=== PATIENT | female | born 1965 | race Caucasian/White ===

== ENCOUNTER 2019-12-30 17:41 | Outpatient (REF) | payer OTHER, SELFPAY | END 2019-12-30 17:42 | disposition home or self-care (01) | LOC: HO.LNP 17:41 | PROVIDERS: Visit Provider Nurse Practitioner Family | DX: Z20.828 Contact with and (suspected) exposure to other viral communicable diseases (principal) | CPT/HCPCS: U0003 ==

== ENCOUNTER 2020-10-03 15:32 | Outpatient (REF) | payer OTHER, SELFPAY | END 2020-10-03 15:33 | disposition home or self-care (01) | LOC: HO.LNP 15:32 | PROVIDERS: Visit Provider Physician Assistant | DX: Z20.822 Contact with and (suspected) exposure to COVID-19 (principal); R52 Pain, unspecified | CPT/HCPCS: U0003; U0005 ==

== ENCOUNTER 2021-02-20 11:02 | Outpatient (REF) | payer OTHER, SELFPAY ==
[2021-02-20 11:32] LABS: Binax Internal Control QC Valid; Binax Now Covid-19 Ag Negative (Negative)
== END 2021-02-20 11:03 | disposition home or self-care (01) ==
LOC: HO.HMGCLDS 11:02
PROVIDERS: PCP Internal Medicine; Visit Provider Internal Medicine
DX: J06.9 Acute upper respiratory infection, unspecified (principal)
CPT/HCPCS: 36415

== ENCOUNTER 2021-06-07 13:58 | Outpatient (REF) | payer OTHER, SELFPAY ==
[2021-06-07 14:43] LABS: Influenza A PCR NEGATIVE (Negative); Influenza B PCR NEGATIVE (Negative); Resp Syncy Virus RNA Qual PCR NEGATIVE (Negative); SARS COV2 PCR INHOUSE POSITIVE (Negative)
== END 2021-06-07 13:59 | disposition home or self-care (01) ==
LOC: HO.LNP 13:58
PROVIDERS: Visit Provider Physician Assistant
DX: B34.9 Viral infection, unspecified (principal); Z20.822 Contact with and (suspected) exposure to COVID-19
CPT/HCPCS: 0241U

== ENCOUNTER 2022-10-03 17:09 | Outpatient (AMB) | payer OTHER, SELFPAY ==
[2022-10-03 17:25] VITALS: BP 106/80; PULSE 71; O2SAT 98; BMI 29.4
--- NOTE | 2022-10-03 17:25 | A.OFFPC_ITS ---
Vital Signs 10/03/22 17:25 Height 5 ft 6 in Weight 182 lb 6 oz BMI 29.4 BP 106/80 Blood Pressure Location Lt brachial Position Sitting Pulse 71 Pulse Source Pulse Oximeter Pulse Oximetry (%) 98 Oxygen Delivery Method Room Air Intake Visit Reasons: Annual PE Auto Dismantler Required: No Accompanied by: Self / Same As Patient Allergies ibuprofen Adverse Reaction (Unknown, Verified 10/03/22 17:59) stomach upset Medication List - Last Reconciled 10/03/22 by Chandan Arzola MD diclofenac sodium 1% 2 grams topical QID [id number]-vaegg-calcium carb-K1 400 mcg-500 mg calcium-20 mcg (Women's 50 Plus Multivitamin) tabs PO Tobacco use date assessed: 10/03/22 Dental Screening Dental Screen Date: 10/03/22 Did you have a dental visit in the last 12 months?: No Did you have a dental problem in the last 6 months where you did not have access to dental care?: No Was dental information given to patient?: No HPI Annual PE HPI Details Patient comes in today for her annual physical examination - has not been seen in our practice in a few years due to insurance issues States that she has been having problems with her ears lately Relates that her left ear felt blocked up for a day or so and her symptoms eventually cleared up on their own States that she woke up yesterday with her right ear now feeling blocked up and it remains unchanged until today Has not had any recent cough/cold symptoms but states that 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 at work all the time She denies any fever or sore throat Denies any headaches or dizziness Denies any chest pains, no SOB No nausea/vomiting, no abdominal pain No change in bowel habits noted Denies any acute urinary symptoms Adds that she has been experiencing recurrent left ankle pain for months now Denies any history of injury or trauma to her ankle Went to the walk-in clinic in [place] earlier this year for the same problem but was advised that the clinic in [place] did not have an x-ray machine on site and x-rays could not be done at the time She has not seen OB-Aligning Inspector and had pap smear and rn integrated exam done in years; also has not had mammogram done since 2014 and has never had a screening colonoscopy done in the past [facility] Medical History (Updated 10/03/22 @ 19:35 by Chandan Arzola MD) Hyperlipidemia Osteoarthritis of right knee Overweight (BMI 25.0-29.9) Pure hypercholesterolemia Surgical History No pertinent past surgical history Family History Father Skin cancer CVD (cardiovascular disease) Myocardial infarction Mother Skin cancer Afib Son Autism Social History Housing: House Patient Tobacco Use Status: Former Tobacco user e-Cigarette/Vaping Use: Never Used service: No Current occupational status: employed Cognitive needs: No Hearing needs: No Vision needs: No Questionnaire PHQ-9 Over the last 2 weeks, how often have you been bothered by any of the following problems? 1. Little interest or pleasure in doing things: not at all 2. Feeling down, depressed, or hopeless: not at all 3. Trouble falling or staying asleep, or sleeping too much: not at all 4. Feeling tired or having little energy: not at all 5. Poor appetite or overeating: not at all 6. Feeling bad about yourself - or that you are a failure or have let yourself or your family down: not at all 7. Trouble concentrating on things, such as reading the newspaper or watching television: not at all 8. Moving or speaking so slowly that other people could have noticed. Or the opposite - being so fidgety or restless that you have been moving around a lot more than usual: not at all 9. Thoughts that you would be better off or of hurting yourself in some way: not at all Total score: 0 Depression Screening Interpretation: Negative [id number] - PHQ-9 Billing: Yes Source: Developed by Drs. Minh Valles, Latanya Leon, Remi Carbajal and colleagues, with an educational alison from [employer]. Thrive Questionnaire Date Thrive assessed: 10/03/22 I am a: Patient What is your living situation today?: I have a steady place to live Within the past 12 months, did the food you bought not last and you didn't have the money to get more?: Never true Within the past 12 months, did you worry whether your food would run out before you got money to buy more?: Never true Do you have trouble paying for medicines?: No Do you have trouble getting transportation to medical appointments?: No Do you have trouble paying your heating and electricity bill?: No Do you have trouble taking care of your child, family member or friend?: No Do you have trouble with day-to-day activities such as bathing, preparing meals, shopping, managing finances, etc.?: No Are you currently unemployed and looking for a job?: No Are you interested in more education?: No Please select the resources that you would like help with: None Currently or been in a relationship where the following occur: no concerns re ported AUDIT C Alcohol Use Questionnaire (AUDIT-C) 1. How often do you have a drink containing alcohol?: Never Total Score: 0 Score Reviewed/Action Taken: Yes EVELYN-7 AMB Questionnaire EVELYN-7 Date EVELYN - 7 assessed: 10/03/22 Feeling nervous, anxious, or on edge: 0 = Not at all Not being able to stop or control worryin = Not at all Worrying too much about different things: 0 = Not at all Trouble relaxin = Not at all Being so restless that it is hard to sit still: 0 = Not at all Becoming easily annoyed or irritable: 0 = Not at all Feeling afraid as if something awful might happen: 0 = Not at all Total EVELYN-7 score (0-4 normal; 5-9 mild; 10-14 moderate; 15-21 severe): 0 Source: Developed by Drs. Minh Valles, Latanya Leon, Remi Carbajal and colleagues, with an educational alison from [employer]. Review of Systems Const Denies chills, Denies fatigue, Denies fever(s), Denies headache(s) and Denies malaise Eyes Denies blurry vision, Denies change in vision, Denies irritation and Denies itchy eyes ENT Details: ears feel clogged/blocked up off and on - see HPI Denies dysphagia, Denies dizziness, Denies otalgia, Denies headache(s), Denies nasal congestion, Denies neck pain, Denies odynophagia, Denies sinus pain and Denies sore throat Card Denies chest pain, Denies rapid heart rate, Denies irregular heart rhythm, Denies palpitations and Denies dyspnea Resp Denies chest congestion, Denies cough, Denies dyspnea and Denies wheezing GI Denies abdominal pain, Denies bloating, Denies constipation, Denies dysphagia, Denies heartburn, Denies diarrhea, Denies nausea, Denies odynophagia and Denies vomiting Denies hematuria, Denies urinary frequency, Denies dysuria, Denies urinary incontinence and Denies urinary urgency Musc Denies back pain, Reports arthralgias (left ankle - see HPI), Denies joint swelling, Denies muscle weakness and Denies neck pain Skin/Breast Denies breast pain, Denies breast mass, Denies change in pigmentation, Denies lesions, Denies rash and Denies unusual bruising Neuro Denies dizziness, Denies headache(s) and Denies paresthesias Psych Denies anxiety and Denies depression Endo Denies fatigue and Denies palpitations Loi/Lymph Denies easy bruising Aller/Immun Denies itchy eyes and Denies wheezing Physical exam (Primary Care) Vital Signs: Last Vital Signs Pulse 71 10/03/22 17:25 BP 106/80 10/03/22 17:25 Pulse Ox 98 10/03/22 17:25 Oxygen Delivery Method Room Air 10/03/22 17:25 BMI result Body Mass Index 29.4 Tobacco/Smoking Status: Tobacco use Status Tobacco use date assessed 10/03/22 10/03/22 17:36 Patient Tobacco Use Status Former Tobacco user 10/03/22 17:36 e-Cigarette/Vaping Use Never Used 10/03/22 17:36 PHQ-9: PHQ-9 Score PHQ-9: Total score 0 10/03/22 18:02 Depression Screening Interpretation: Negative Thrive Assessment: Date of Thrive Assessment Date Thrive assessed 10/03/22 10/03/22 17:36 Currently or been in a relationship where the following occur: no concerns reported Const General: no acute distress, alert and awake Orientation/consciousness: patient oriented x3 HENMT Head: Yes normocephalic and Yes atraumatic Ears: external ears normal, Abnormal EAC present cerumen impaction bilateral (slightly worse in the right ear) and unable to visualize TM bilaterally (due to excessive amount of cerumen in the ear canals) General nose exam: No nasal discharge present Face and sinus: Yes normal facial exam and Yes sinuses nontender Teeth and gingiva: dentition normal Throat: Yes posterior oropharynx normal and Yes tonsils normal (no TP congestion) Eyes Eyelids: Yes eyelids normal Conjunctivae: conjunctivae normal Pupils: Equal, round and reactive pupils present EOM: EOMs intact bilaterally Neck Neck: Yes no lymphadenopathy and Yes supple Thyroid: Thyroid normal Resp Auscultation: clear to auscultation bilaterally, no rales and no wheezes Cardio Rate: regular rate Rhythm: regular rhythm Heart sounds: no murmurs GI Palpation (GI): Soft to palpation, nontender and No hepatosplenomegaly present Auscultation: normal bowel sounds General: Yes no CVA tenderness Back/Spine/Pelvis Back: no CVA tenderness Thoracic/Lumbar Spine: thoracic and lumbar spine normal to inspection Skin Lesions: no lesions Rashes: no rashes Neuro General: patient oriented x3, moves all extremities, no focal motor deficits and CN's II-XI intact bilaterally Cranial nerves: Yes Equal, round and reactive pupils present Cognition (Neuro): normal cognition Gait exam (Neuro): Normal gait present Extrem General: Yes no clubbing, cyanosis or edema Left lower extremity: ankle Details: tenderness; no swelling Assessment and Plan Assessment & Plan (1) Annual physical exam: Code(s): Z00.00 - Encounter for general adult medical examination without abnormal findings Plan: Check labs (2) Pure hypercholesterolemia: Code(s): E78.00 - Pure hypercholesterolemia, unspecified Plan: Reinforced low cholesterol diet Will recheck her fasting lipids BERTRAND for follow up (3) Impacted cerumen of both ears: Code(s): H61.23 - Impacted cerumen, bilateral Plan: Patient is instructed to start using Debrox ear drops into both ears as instructed for 5 to 7 days Instructed also on self irrigation of her ears while in the shower daily Will need to undergo ear irrigation in the office OR refer to ENT for further evaluation and management if unsuccessful at attempts with conservative treatment/management (4) Left ankle pain: Code(s): M25.572 - Pain in left ankle and joints of left foot Qualifiers: Chronicity: chronic Qualified Code(s): M25.572 - Pain in left ankle and joints of left foot; G89.29 - Other chronic pain Plan: Unknown etiology Will send her for x-rays of the left ankle BERTRAND for further evaluation (5) Overweight (BMI 25.0-29.9): Code(s): E66.3 - Overweight Plan: Reinforced diet/exercise as tolerated/lose weight (6) Breast cancer screening by mammogram: Code(s): Z12.31 - Encounter for screening mammogram for malignant neoplasm of breast Plan: Will send for annual screening mammogram - has not had one done since 2014 (7) Cervical cancer screening: Code(s): Z12.4 - Encounter for screening for malignant neoplasm of cervix Plan: Will refer her to OB-Aligning Inspector for annual pap smear and rn integrated exam (8) Colon cancer screening: Code(s): Z12.11 - Encounter for screening for malignant neoplasm of colon Plan: Patient declined offer to refer her to screening colonoscopy at this time but agrees to doing Cologuard testing States that she has no increased family of personal risks for colon cancer Plan To return in 1 year for her next annual physical examination Orders: Orders XR ankle LT min 3V Today M25.572 - Pain in left ankle and joints of left foot Comprehensive [place]bee. Panel Fast Today E78.00 - Pure hypercholesterolemia, unspecified, Z00.00 - Encounter for general adult medical examination without abnormal findings Lipid Panel Today E78.00 - Pure hypercholesterolemia, unspecified, Z00.00 - Encounter for general adult medical examination without abnormal findings TSH reflex Free T4 Today E78.00 - Pure hypercholesterolemia, unspecified, Z00.00 - Encounter for general adult medical examination without abnormal findings Vitamin D 25-OH Total Today E55.9 - Vitamin D deficiency, unspecified, Z00.00 - Encounter for general adult medical examination without abnormal findings Complete Blood Count Auto Diff Today Z00.00 - Encounter for general adult medical examination without abnormal findings UA CC w/rflx Micro + Cult Today R30.0 - Dysuria, Z00.00 - Encounter for general adult medical examination without abnormal findings MM tomosynthesis screening BI Today Z12.31 - Encounter for screening mammogram for malignant neoplasm of breast Referrals FRAME SAMPLE AND PATTERN SUPERVISOR Referral Z12.4 - Encounter for screening for malignant neoplasm of cervix Cologuard Test Z12.11 - Encounter for screening for malignant neoplasm of colon Medications: New Debrox 6.5% (carbamide peroxide) 10 drps otic (ears) DAILY 7 days 15 mL 0RF NS Review Patient declined Colonoscopy: 10/03/22 (but agrees to Cologuard testing) Coding Level of Care Code Est Pt Prev Care 40-64y(75538) Diagnoses Annual physical exam Z00.00 Pure hypercholesterolemia E78.00 Impacted cerumen of both ears H61.23 Left ankle pain M25.572; G89.29 Chronicity: chronic Overweight (BMI 25.0-29.9) E66.3 Breast cancer screening by mammogram Z12.31 Cervical cancer screening Z12.4 Colon cancer screening Z12.11
== END 2022-10-03 18:24 | disposition home or self-care (01) ==
PROVIDERS: Visit Provider Internal Medicine
DX: Z00.00 Encounter for general adult medical examination without abnormal findings (principal); E78.00 Pure hypercholesterolemia, unspecified; H61.23 Impacted cerumen, bilateral; M25.572 Pain in left ankle and joints of left foot; G89.29 Other chronic pain; E66.3 Overweight; Z12.31 Encounter for screening mammogram for malignant neoplasm of breast; Z12.4 Encounter for screening for malignant neoplasm of cervix; Z12.11 Encounter for screening for malignant neoplasm of colon
CPT/HCPCS: 99396

== ENCOUNTER 2022-10-04 08:19 | Outpatient (REF) | payer OTHER, SELFPAY ==
--- NOTE | ~2022-10-04 | XR_ITS ---
EXAMINATION: XR ANKLE, LEFT CLINICAL INFORMATION: Pain COMPARISON: None available. TECHNIQUE: AP, lateral, and mortise views of the left ankle. FINDINGS: Bone alignment is normal. No acute fracture or dislocation. There is irregular appearance of medial dome of the talus suggestive of old osteochondral injury or osteochondritis dissecans. There is arthritis at the tibiotalar joint with joint space narrowing and osteophyte formation. There is mild medial soft tissue swelling adjacent to the ankle. There is soft tissue calcification in the lower leg. XR/XR ankle LT min 3V IMPRESSION: Abnormal appearance of the medial talar dome suggestive of old osteochondral injury or osteochondritis desiccants. 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
[2022-10-04 08:43] LABS: MANUAL DIFF FLAG NO
[2022-10-04 09:12] LABS: Basophils Percent Auto 0.6 % (0-2); Eosinophils Absolute Auto 0.1 X10*3/uL (0.0-0.4); Eosinophils Percent Auto 2.4 % (0-4); Hematocrit 38.9 % (37.0-47.0); Hemoglobin 12.5 g/dl (12.0-16.0); Imm Gran Abs Auto 0.01 X10*3/uL (0.00-0.03); Imm Gran Pct Auto 0.2 % (0.0-0.4); Lymphocytes Absolute Auto 1.7 X10*3/uL (1.2-4.9); Lymphocytes Percent Auto 33.5 % (20-40); Mean Corpuscular HGB Conc 32.1 g/dl (31.0-35.0); Mean Corpuscular Hemoglobin 29.7 pg (27.0-33.0); Mean Corpuscular Volume 92.4 fL (80.0-98.0); Mean Platelet Volume 9.6 fL (9.4-12.3); Monocytes Absolute Auto 0.4 X10*3/uL (0.1-1.2); Monocytes Percent Auto 7.8 % (2-11); Neutrophils Absolute Auto 2.8 x10*3/uL (2.0-8.3); Neutrophils Percent Auto 55.5 % (45-73); Platelet Count 328 X10*3/uL (160-400); Red Blood Count 4.21 X10*6/uL (4.20-5.50); Red Cell Distribution Width 13.9 % (11.0-16.0); White Blood Count 5.1 X10*3/uL (4.8-10.8)
[2022-10-04 09:38] LABS: Appearance Urine Clear; Color Urine Yellow; Glucose Urine UA Negative (Negative); Leukocyte Esterase Urine Negative (Negative); Nitrite Urine Negative (Negative); Urine Blood Negative (Negative); Urine Ketones Negative (Negative); Urine Protein Negative (Neg-Trace)
[2022-10-04 09:50] LABS: Alanine Aminotransferase 18 U/L (0-31); Albumin Level 3.9 g/dL (3.5-5.0); Alkaline Phosphatase 73 U/L (39-117); Anion Gap 10 (12-20); Aspartate Amino Transferase 16 U/L (5-31); Bilirubin Total 0.2 mg/dL (0.0-1.0); Blood Urea Nitrogen 16 mg/dL (9-16); Carbon Dioxide 27 mmol/L (22-29); Chloride 108 mmol/L (96-108); Cholesterol 273 mg/dL (<200); Estimated Glomerular Filt Rate > 60; Glucose Fasting 88 mg/dL (60-99); HDL Cholesterol 50 mg/dL (>40); LDL Cholesterol Calculated 179 mg/dL (<100); Potassium 4.1 mmol/L (3.3-5.1); Sodium 141 mmol/L (135-145); Total Protein 6.8 g/dL (6.5-8.0); Triglycerides 221 mg/dL (<150)
[2022-10-04 10:10] LABS: TSH reflex Free T4 3.58 uIU/mL (0.32-4.0); Vitamin D 25-OH Total 37.3 ng/mL (>30)
== END 2022-10-04 08:20 | disposition home or self-care (01) ==
LOC: HO.LAB 08:19
PROVIDERS: PCP Internal Medicine; Visit Provider Internal Medicine
DX: Z00.00 Encounter for general adult medical examination without abnormal findings (principal); E78.00 Pure hypercholesterolemia, unspecified; E55.9 Vitamin D deficiency, unspecified; R30.0 Dysuria; M25.572 Pain in left ankle and joints of left foot
CPT/HCPCS: 36415; 73610; 80053; 80061; 81003; 82306; 84443; 85025

== ENCOUNTER 2022-11-10 09:49 | Outpatient (AMB) | payer OTHER, SELFPAY ==
--- NOTE | 2022-11-10 10:12 | AM.OFFWIN_ITS ---
Intake Vital Signs 11/10/22 10:15 Height 5 ft 6 in Weight 187 lb 8 oz BMI 30.3 BP 120/78 Blood Pressure Location Lt brachial Pulse 64 Pulse Source Pulse Oximeter Temp 97.2 F Temp Source Temporal Artery Scan Pulse Oximetry (%) 97 Oxygen Delivery Method Room Air Intake Visit Reasons: EP, sore throat, congestion ([phone]) Intake Note: Pt is here requesting a COVID test. Patient Tobacco Use Status: Former Tobacco user Allergies ibuprofen Adverse Reaction (Unknown, Verified 11/10/22 10:20) stomach upset Do you need a note to return to daycare/school/sports/work: No HPI HPI Comments History of Present Illness Details 56-year-old female presents for viral UR I symptoms requesting COVID testing. Experiencing cough congestion runny nose sore throat [facility] Medical History (Updated 11/10/22 @ 10:38 by ADILENE Silva) Overweight (BMI 25.0-29.9) Pure hypercholesterolemia Osteoarthritis of right knee Hyperlipidemia Surgical History No pertinent past surgical history Family History Father Skin cancer CVD (cardiovascular disease) Myocardial infarction Mother Skin cancer Afib Son Autism Social History Housing: House Patient Tobacco Use Status: Former Tobacco user e-Cigarette/Vaping Use: Never Used service: No Current occupational status: employed Cognitive needs: No Hearing needs: No Vision needs: No Review of Systems Const All systems reviewed & are unremarkable except as noted in HPI and below ENT Reports nasal congestion, Reports nasal discharge and Reports sore throat Physical Exam Vital Signs: Last Vital Signs Temp 97.2 F 11/10/22 10:15 Pulse 64 11/10/22 10:15 BP 120/78 11/10/22 10:15 Pulse Ox 97 11/10/22 10:15 Oxygen Delivery Method Room Air 11/10/22 10:15 BMI result Body Mass Index 30.3 Const General: healthy appearing and no acute distress Orientation/consciousness: patient oriented x3 Limitations: no limitations HEENT Head: Yes normal to inspection Ears: hearing grossly normal bilaterally and external ears normal General nose exam: Normal external nose present Eyes General: appearance normal, both eyes and all related structures Neck Neck: Yes normal visual inspection Chest Chest palpation & inspection: normal inspection of the chest Resp Effort & Inspection: normal respiratory effort, able to speak in complete sentences and no audible wheezes Cardio Rate: regular rate Skin General skin exam: no rashes or lesions noted Neuro General: patient oriented x3 Psych Appearance: grossly normal Mental Status: mental status grossly normal Speech and movement: Normal speech and movement present Affect: normal affect Attitude: cooperative Thought process: Normal thought process present Thought content: Normal thought content present Assessment & Plan Assessment & Plan (1) Upper respiratory tract infection: Code(s): J06.9 - Acute upper respiratory infection, unspecified Qualifiers: URI type: unspecified URI Qualified Code(s): J06.9 - Acute upper respiratory infection, unspecified Orders: Orders BinaxNOW Covid-19 Ag Today J06.9 - Acute upper respiratory infection, unspecified Patient Instructions: You were seen and evaluated for your cold-like symptoms. We cannot say for sure at this time examination is reassuring. We believe is likely suffering from a viral URI. Recommend continued symptomatic treatment using saline rinses Tylenol Motrin as needed. Y You should return to clinic or the emergency department if you experience any new worsening symptoms such as chest pain, shortness of breath, nausea, vomiting, abdominal pain, or any concerning symptoms I mentioned above. Coding Level of Care Code Est Pt Level 2 (72206) Diagnoses Upper respiratory tract infection, unspecified type J06.9 URI type: unspecified URI
[2022-11-10 10:15] VITALS: BP 120/78; PULSE 64; TEMP 36.2; O2SAT 97; BMI 30.3
== END 2022-11-10 10:39 | disposition home or self-care (01) ==
PROVIDERS: PCP Internal Medicine; Visit Provider Physician Assistant
DX: J06.9 Acute upper respiratory infection, unspecified (principal)
CPT/HCPCS: 99212

== ENCOUNTER 2022-11-10 10:41 | Outpatient (REF) | payer OTHER, SELFPAY ==
[2022-11-10 11:06] LABS: Binax Internal Control QC Valid; Binax Now Covid-19 Ag Negative (Negative); Binax Performed by: PAULP
== END 2022-11-10 10:42 | disposition home or self-care (01) ==
LOC: HO.HMGCLDS 10:41
PROVIDERS: PCP Internal Medicine; Visit Provider Physician Assistant
DX: Z20.822 Contact with and (suspected) exposure to COVID-19 (principal); J06.9 Acute upper respiratory infection, unspecified
CPT/HCPCS: 87811; C9803